=== PATIENT | female | born 1960 | race Caucasian/White ===

== ENCOUNTER 2017-02-25 13:18 | Outpatient (CLI) | payer MEDICARE ==
--- OUTSIDE RECORDS SUMMARY | 2017-02-25 13:21 | XMS | Clinical Summary ---
:1960 Author Organization [facility] Address [address] [place] [address] Phone Care Team Providers Name Role Phone , Primary Care Provider Unavailable Allergies Not on File Current Medications Not on file Active Problems Not on file Social History Tobacco Use Types Packs/Day Years Used Date Never Assessed Sex Assigned at Date Recorded Not on file Last Filed Vital Signs Not on file Plan of Treatment Not on file Results Not on filefrom Last 3 Months
--- NOTE | 2017-02-25 14:23 | BD ---
DEXA BONE MINERAL DENSITOMETRY EXAM, DENSITY EXAM: HISTORY: A 56-year-old postmenopausal female for screening. COMPARISON: None. FINDINGS: Lumbar Spine: BMD (g/cm2) L1 0.918 T-Score: -0.7 L2 0.970 T-Score: -0.5 L3 1.111 T-Score: 0.2 L4 0.858 T-Score: -1.8 L1-L4 0.967 T-Score: -0.7 Femoral Neck: 0.821 T-Score: -0.3 Total Femur: 0.986 T-Score: 0.4 Impression: Normal bone mineral density. POS: [facility]
== END 2017-02-25 13:19 | disposition home or self-care (01) ==
LOC: MAMMO 13:18
PROVIDERS: ATTEND Internal Medicine
DX: Z78.0 Asymptomatic menopausal state (principal)
CPT/HCPCS: 77080

== ENCOUNTER 2017-03-03 10:05 | Emergency (ER) | payer MEDICARE ==
--- OUTSIDE RECORDS SUMMARY | 2017-03-03 10:09 | XMS | Clinical Summary ---
:1960 Author Organization [facility] Address [address] [place] [address] Phone Care Team Providers Name Role Phone [...]
[2017-03-03] MEDS ORDERED: Fluorescein Opthalmic Strip ONE (11:43)
[2017-03-03] MEDS ORDERED: Proparacaine 0.5% Opth 15 ML BOT ONE (11:44)
== END 2017-03-03 13:01 | disposition home or self-care (01) ==
LOC: ERS 10:05
DX: S05.11XA Contusion of eyeball and orbital tissues, right eye, initial encounter (principal); E66.9 Obesity, unspecified; E03.9 Hypothyroidism, unspecified; F31.9 Bipolar disorder, unspecified; F90.9 Attention-deficit hyperactivity disorder, unspecified type; K21.9 Gastro-esophageal reflux disease without esophagitis; K58.9 Irritable bowel syndrome, unspecified; E78.5 Hyperlipidemia, unspecified; I10 Essential (primary) hypertension; F41.9 Anxiety disorder, unspecified; Z85.3 Personal history of malignant neoplasm of breast; Z79.899 Other long term (current) drug therapy; X58.XXXA Exposure to other specified factors, initial encounter
CPT/HCPCS: 99283

== ENCOUNTER 2017-10-31 15:13 | Emergency (ER) | payer MEDICARE ==
[2017-10-31] MEDS ORDERED: hydrOXYzine 25 MG TAB ONE (15:33)
== END 2017-10-31 17:50 | disposition home or self-care (01) ==
LOC: ERS 15:13
DX: T50.905A Adverse effect of unspecified drugs, medicaments and biological substances, initial encounter (principal); F31.9 Bipolar disorder, unspecified; F90.9 Attention-deficit hyperactivity disorder, unspecified type; K58.9 Irritable bowel syndrome, unspecified; I10 Essential (primary) hypertension; F41.9 Anxiety disorder, unspecified; E05.90 Thyrotoxicosis, unspecified without thyrotoxic crisis or storm; K21.9 Gastro-esophageal reflux disease without esophagitis; E66.9 Obesity, unspecified; E78.5 Hyperlipidemia, unspecified
CPT/HCPCS: 99283

== ENCOUNTER 2018-06-16 09:04 | Outpatient (CLI) | payer MEDICARE ==
--- NOTE | 2018-06-16 11:41 | CT ---
NONCONTRAST CT THORAX: Date: 06-16-18 History: Breast cancer in 2004. Chest pain. Patient also complains of neck and back pain. Comparison: None available. FINDINGS: There are findings suggestive of bilateral mastectomies with bilateral breast implants in place. Lack of intravenous contrast limits evaluation of the mediastinal structures, but no obvious enlarged lymph nodes are seen. There is mild linear scarring versus atelectasis in the upper lobes bilaterally as well as at the lef t lung base. No discrete pulmonary nodule, mass, or pleural effusion is seen bilaterally. Small bleb is seen in the left upper lobe adjacent to the major fissure. Post cholecystectomy changes are noted. Remainder of the upper abdomen demonstrates a grossly normal nonenhanced CT appearance. No lytic lesions are seen within the visualized osseous structures. There is a punctate scar density in the upper thoracic vertebral body probably related to a tiny bone island. IMPRESSION: 1. No acute findings are seen in the chest. 2. Additional mild incidental findings are seen. No pulmonary nodule or mass seen in the lungs bilate rally. 3. Minimal linear scarring versus atelectasis in the lungs bilaterally. POS: [facility]
== END 2018-06-16 09:05 | disposition home or self-care (01) ==
LOC: CT 09:04
PROVIDERS: ATTEND Psychiatry & Neurology Neurology
DX: R07.9 Chest pain, unspecified (principal); R20.2 Paresthesia of skin
CPT/HCPCS: 71250

== ENCOUNTER 2018-06-24 20:19 | Emergency (ER) | payer MEDICARE | END 2018-06-24 21:00 | disposition home or self-care (01) | LOC: SCSER 20:19 | DX: J06.9 Acute upper respiratory infection, unspecified (principal); F31.9 Bipolar disorder, unspecified; E05.90 Thyrotoxicosis, unspecified without thyrotoxic crisis or storm; F90.9 Attention-deficit hyperactivity disorder, unspecified type; K58.9 Irritable bowel syndrome, unspecified; I10 Essential (primary) hypertension; F41.9 Anxiety disorder, unspecified; E78.5 Hyperlipidemia, unspecified | CPT/HCPCS: 99281 ==

== ENCOUNTER 2018-07-08 11:47 | Outpatient (CLI) | payer OTHER, MEDICARE ==
--- NOTE | 2018-07-08 13:02 | RAD ---
TWO VIEWS CHEST: DATE: 07/08/2018. PROVIDED CLINICAL HISTORY: Cough. FINDINGS: Comparison is made with the study dated 10/11/2015. The cardiac and mediastinal silhouette is unchang ed in appearance. Lungs appear free of significant opacity. Subsegmental atelectatic changes are se en at the lung bases. No pleural fluid or pneumothorax apparent. IMPRESSION: No evidence for an acute cardiopulmonary process. POS: [facility]
== END 2018-07-08 11:48 | disposition home or self-care (01) ==
LOC: SCSRAD 11:47
PROVIDERS: ATTEND Physician Assistant
DX: R05 Cough (principal)
CPT/HCPCS: 71046

== ENCOUNTER 2018-09-01 11:10 | Outpatient (CLI) | payer MEDICARE ==
--- NOTE | 2018-09-01 11:57 | RAD ---
FExam: Lumbar spine 3 views HISTORY: Pain. Lumbar spondylosis Comparison 08/29/2014 FINDINGS: 5 lumbar type vertebral bodies. L2-L3: Neutral position, 3.2 mm retrolisthesis; extension, 2.5 mm retrolisthesis; flexion, 2.4 mm ret rolisthesis L3-L4: Neutral position 1.2 mm retrolisthesis; extension, 1.5 mm retrolisthesis; flexion 1.2 mm retro listhesis L4-L5: Neutral position: No spondylolisthesis; extension 1.4 mm retrolisthesis; flexion no spondyloli sthesis IMPRESSION: Spondylolisthesis as above. No associated spondylolysis.
== END 2018-09-01 11:11 | disposition home or self-care (01) ==
LOC: RAD 11:10
PROVIDERS: ATTEND Nurse Practitioner Family
DX: M47.816 Spondylosis without myelopathy or radiculopathy, lumbar region (principal); M43.16 Spondylolisthesis, lumbar region
CPT/HCPCS: 72100

== ENCOUNTER 2018-11-28 08:59 | Outpatient (CLI) | payer MEDICARE, OTHER ==
--- NOTE | 2018-11-28 09:56 | RAD ---
XR Foot Lt 3 View STANDARD History: Pain Comparison: Radiograph 2017 Findings: Bunionectomy changes of the great toe metatarsal head. No acute fracture or malalignment. T ype II os naviculare. Large plantar calcaneal spur. Impression: Chronic findings. No acute fracture or malalignment.
== END 2018-11-28 09:00 | disposition home or self-care (01) ==
LOC: RAD 08:59
PROVIDERS: ATTEND Nurse Practitioner Family
DX: M79.672 Pain in left foot (principal); M77.32 Calcaneal spur, left foot

== ENCOUNTER 2020-07-29 00:47 | Inpatient (IN) | payer MEDICARE ==
[2020-07-29] MEDS ORDERED: HYDROcodone/Acetaminophen 5/325 mg Tablet ONE (01:08)
[2020-07-29] MEDS ORDERED: PROPOFOL 20 ML ONE (01:42)
[2020-07-29] MEDS ORDERED: Fentanyl 100 MCG/2 ML VIAL ONE ×4 (02:37→15:20)
[2020-07-29] MEDS ORDERED: Dextrose 5% in Water 1,000 ML IV PRN (06:30)
[2020-07-29] MEDS ORDERED: Ondansetron PF 4 MG/2 ML Vial IVP PRN (06:30)
[2020-07-29] MEDS ORDERED: Dextrose 50% Abboject 50 ML SYRINGE SLOW IVP PRN (06:30)
[2020-07-29] MEDS ORDERED: hydrALAZINE 20 MG/ML VIAL SLOW IVP PRN (06:30)
[2020-07-29] MEDS ORDERED: traMADol HCl 50 MG TAB PO PRN ×2 (06:33)
[2020-07-29 07:16] LABS: #Basophils 0.1 thou/uL (0.0-0.2); #Eosinphils 0.3 thou/uL (0.0-0.7); #Lymphocytes 2.4 thou/uL (1.20-3.40); #Monocytes 0.5 thou/uL (0.11-0.59); #Neutrophils 4.6 thou/uL (1.40-6.50); %Basophils 0.6 % (0.0-1.0); %Eosinophils 4.1 % (0.0-10.0); %Lymphocytes 30.3 % (21.0-51.0); %Monocytes 6.5 % (0.0-10.0); %Neutrophils 58.4 % (42.0-75.0); Hemoglobin 11.5 g/dL (12.0-16.0); Mean Corpuscular HGB CONC 33.8 g/dL (32.0-36.0); Mean Corpuscular Hemoglobin 30.7 pg (27.0-31.0); Mean Corpuscular Volume 90.8 fL (78.0-98.0); Mean Platelet Volume 6.4 fL (7.4-10.4); Platelet Count 272 thou/uL (130-400); RBC Distribution Width 11.9 % (11.5-14.5); Red Blood Cell (RBC) Count 3.75 mill/uL (4.20-5.40); White Blood Cell (WBC) Count 7.9 thou/uL (4.8-10.8)
[2020-07-29 07:20] LABS: PTT 26.4 sec (22.9-36.1); Prothrombin Time 13.3 sec (12.0-14.7)
--- NOTE | 2020-07-29 07:34 | HP ---
TRAUMA SURGEON: Dr. Lainez CONSULTING PHYSICIAN: Pasquale Melton MD HISTORY OF PRESENT ILLNESS: The patient is a 59-year-old female, who presented to the emergency department complaining of left elbow pain. The patient reports that she had a mechanical fall on Saturday, 4 days before presentation. At that time, she suffered an elbow dislocation and went to the [facility] Emergency Department. There, it was reduced. They used ketamine to reduce the dislocation and the patient reports that as a result, she had a reaction causing an episode of acute heart failure. She was admitted to the hospital and was discharged on Saturday. She received Lasix and carvedilol there. Before she was discharged, she was kept for several days as she was requiring oxygen. At the time of my evaluation, there appears to be no signs of acute heart failure. The patient states that she is a patient of Dr. Quarles, but she was not seen by butter fat tester at her most recent hospital stay at [facility]. She denies any chest pain, shortness of breath, nausea, vomiting, or diarrhea at this time. EKG demonstrates a left bundle- branch block without any ST-segment changes or other ectopy. The patient has a history of left bundle-branch block. The patient reports yesterday evening she was trying to pull up her pants when she started to have a lot of swelling and pain in her left upper extremity. They called the nurse line that reported that the patient should unwrap the bandage. As a result, the patient then suffered an elbow dislocation that is when she came here to the emergency department. Dr. Pelayo gave the patient propofol in the emergency department and reduced the elbow dislocation and splinted it. Shortly thereafter, became dislocated again and reduced it another time before it became dislocated for the third time. Dr. Melton was consulted, who recommended admission to the Trauma Service and surgical intervention. REVIEW OF SYSTEMS: All additional 10-point review of systems negative except as indicated above. PAST MEDICAL HISTORY: Congestive heart failure, left bundle-branch block, asthma, hypothyroidism, depression, anxiety, bipolar disorder, fibromyalgia, and breast cancer. PAST SURGICAL HISTORY: Several breast surgeries, cholecystectomy, hysterectomy, several laparotomies for which the patient could not fully describe the reason. SOCIAL HISTORY: The patient denies tobacco, drug, or alcohol use. 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 MEDICATIONS: 1. Lasix. 2. Carvedilol. 3. Potassium chloride. 4. Prozac. 5. Omeprazole. 6. Levothyroxine. 7. Trazodone. 8. Lamictal. 9. Diclofenac. 10. Aspirin. ALLERGIES: GABAPENTIN, ZITHROMAX, IODINE, CIPRO, LYRICA, KETAMINE, SUMATRIPTAN, SHELLFISH, IBUPROFEN, WELLBUTRIN, AND AMOXICILLIN. PHYSICAL EXAMINATION: VITAL SIGNS: Temperature 97.9, pulse 66, respirations 16, oxygen saturation 95% on 1 L nasal cannula, and blood pressure 115/57. PRIMARY SURVEY: Airway intact. Adequate breath sounds bilaterally. 2+ pulses in bilateral radials, femorals, and DPs. GCS 15. Gross motor and sensation intact. No lacerations, bruising, or external bleeding. Left upper extremity with splint that is in place. SECONDARY SURVEY: HEAD: No signs of trauma. FACE: No signs of trauma. C-SPINE: No step-offs or deformities. Nontender. C-collar not in place. CHEST: Nontender. No crepitus. No abrasions or ecchymosis noted. ABDOMEN: Soft, nontender, and nondistended. PELVIS: Stable to palpation. Nontender. RECTAL: Deferred. GENITOURINARY: Deferred. EXTREMITIES: The patient with splint to left upper extremity. She has positive bilateral radial and DP pulses. Left hand is well perfused. Motor and sensation intact. BACK/SPINE: No signs of trauma. 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 Gross normal sensation x4 extremities. LABORATORY FINDINGS: Pending. We will follow those results up when available. DIAGNOSTIC FINDINGS: Reports of multiple left elbow x-rays as well as chest x- ray are pending. Elbow x-ray demonstrates subluxation. Chest x-ray demonstrates no significant volume overload, pneumothorax, or effusion. It does show cardiomegaly. ASSESSMENT: 1. Status post left elbow re-dislocation. 2. History of recent congestive heart failure with hospitalization. 3. History of hypertension, left bundle-branch block, asthma, hypothyroidism, depression, anxiety, bipolar disorder, fibromyalgia, and breast cancer. PLAN: The patient is admitted to the Trauma Service. She can go to the regular surgical nursing floor. She is n.p.o. Dr. Melton to evaluate the patient today and take her to the OR when she is medically ready. The patient needs to be seen by Dr. Tello and possibly Cardiology before going to the OR as she recently was hospitalized for congestive heart failure exacerbation. The Day Trauma Team will follow up the patient's formal diagnostic reads as well as laboratory studies. This patient was discussed with Dr. Lainez before this dictation. Job ID: [id number] MTDD
[2020-07-29 07:40] LABS: ALT (SGPT) 17 U/L (8-55); AST (SGOT) 16 U/L (5-34); Albumin 3.5 g/dL (3.5-5.0); Alkaline Phosphatase 83 U/L (40-110); Anion Gap 11 mmol/L (10-20); BUN (Urea Nitrogen) 22 mg/dL (9.8-20.1); Bilirubin, Total 0.3 mg/dL (0.2-1.2); Calc. Creatinine Clearance 0 mL/min (70-130); Calcium 8.3 mg/dL (7.8-10.44); Carbon Dioxide 28 mmol/L (22-29); Chloride 105 mmol/L (98-107); Globulin 2.6 g/dL (2.4-3.5); Glucose 92 mg/dL (70-105); Protein, Total 6.1 g/dL (6.0-8.3); Sodium 140 mmol/L (136-145)
--- NOTE | 2020-07-29 07:45 | RAD ---
Portable frontal chest radiograph: 07/29/2020 COMPARISON: 09/21/2016 HISTORY: Preoperative patient FINDINGS: The cardiac silhouette is enlarged. There is mild pulmonary vascular prominence with no pne umothorax, pleural fluid, lobar consolidation, or alveolar edema. IMPRESSION: Enlarged cardiac silhouette with no focal consolidation or alveolar edema.
--- NOTE | 2020-07-29 07:59 | RAD ---
Radiograph left elbow 2 views: 07/29/2020 1:44 AM HISTORY: 59-year-old female with left elbow pain COMPARISON: No recent elbow radiograph available FINDINGS: The capitellum radial joint space is very widened. There is medial subluxation/dislocation of both th e head of the radius and proximal ulna relative to the distal humerus. There is a posterior splint on one of the 2 images. No displaced fracture is identified. IMPRESSION: Left elbow dislocation/subluxation
--- NOTE | 2020-07-29 08:01 | RAD ---
Radiograph left elbow 2 views: 07/29/2020 2:25 AM HISTORY: 59-year-old female status post elbow dislocation. Worsening pain. FINDINGS: There continues to be medial displacement of the radius and ulna relative to the distal humerus on th e AP view, which is limited because the elbow is flexed on the AP view. Posterior splint remains. IMPRESSION: On postreduction images, there continues to be medial subluxation or dislocation of the radius and ul na relative to the humerus
[2020-07-29] MEDS: Acetaminophen 500 MG TAB PO SCH ×3 (08:32→20:08)
[2020-07-29] MEDS: Famotidine/PF 20 mg/2ml Vial SLOW IVP SCH ×2 (08:34→20:07)
[2020-07-29] MEDS: Polyethylene Glycol 3350 17 GM Packet PO SCH (08:34)
[2020-07-29] MEDS: Senokot S 8.6-50 MG TAB PO SCH ×2 (08:35→20:07)
[2020-07-29 09:14] LABS: SARS-CoV-2 NAA Rapid Test Not Detected (NotDetected)
[2020-07-29] MEDS ORDERED: Clindamycin/D5W 900 MG in Premix Bag 1 BAG IVPB SCH (09:15)
[2020-07-29] MEDS ORDERED: PROPOFOL 200 MG/20 ML VIAL ONE (09:44)
[2020-07-29] MEDS ORDERED: Dexamethasone 20 MG/5 ML VIAL ONE (09:44)
[2020-07-29] MEDS ORDERED: Ondansetron PF 4 MG/2 ML Vial ONE (09:44)
[2020-07-29] MEDS ORDERED: Rocuronium Bromide 10 MG/ML (10ML VIAL) ONE (09:44)
[2020-07-29] MEDS ORDERED: Lidocaine 1% PF 5 ML VIAL ONE (09:44)
--- NOTE | 2020-07-29 10:03 | CON ---
DATE OF CONSULTATION: CHIEF COMPLAINT: Left elbow pain. HISTORY OF PRESENT ILLNESS: Ms. Pang is a 59-year-old female, who has fallen in her backyard approximately 6 days ago. She dislocated her left elbow. She had pain and swelling. She went to [facility], where she was found to have a dislocated elbow. She had a ketamine sedation and a reduction of the elbow. She stayed there for 3 days because of a CHF exacerbation she reports. She has presented to the emergency department at [facility] last night with a redislocated elbow. She felt a pop and increased pain of her elbow and had swelling. Repeat x-ray showed recurrent dislocation. She had an attempt at reduction in the emergency department, which Dr. Pelayo thought was successful, however, she redislocated as she was being splinted. She has now been admitted to the hospital for treatment of her elbow dislocation. REVIEW OF SYSTEMS: Positive for elbow pain. Otherwise, negative 10-point review of systems. PAST MEDICAL HISTORY: CHF, left bundle-branch block, asthma, hypothyroidism, depression, anxiety, bipolar, fibromyalgia, and history of breast cancer. PAST SURGICAL HISTORY: Cholecystectomy, hysterectomy, and previous laparotomy. SOCIAL HISTORY: The patient denies tobacco, alcohol, or drug use. MEDICATIONS: 1. Lasix. 2. Carvedilol. 3. Potassium. 4. Prozac. 5. Omeprazole. 6. Levothyroxine. 7. Trazodone. 8. Lamictal. 9. Diclofenac. 10. Aspirin. ALLERGIES: MANY INCLUDING GABAPENTIN, ZITHROMAX, IODINE, CIPRO, LYRICA, KETAMINE, SUMATRIPTAN, IBUPROFEN, SHELLFISH, WELLBUTRIN, AND AMOXICILLIN. PHYSICAL EXAMINATION: VITAL SIGNS: Temperature is 98.6, pulse is 83, respiratory rate of 18, oxygen saturation 97%, and blood pressure is 140/89. GENERAL: She is lying supine, alert, no apparent distress. EXTREMITIES: Her left arm is in a splint. She is neurovascularly intact in the digits. She has 2-second capillary refill. She is able to flex and extend the digits. Elbow splint was not removed. IMAGES: X-rays of the left elbow demonstrate a dislocated elbow with medial subluxation and posterior dislocation. There is a small avulsion type fracture from the lateral distal humerus. IMPRESSION: Recurrent dislocation of left elbow with instability in a 59-year-old female. PLAN: At this point, the patient has been admitted to the hospital. She will need surgical intervention for her elbow. She has an elbow dislocation currently that is unstable. We will plan for closed versus open reduction of the elbow in the operating room. If she has a recurrently unstable elbow under fluoroscopy, we will need to open the lateral side and repair her lateral collateral ligaments. She is aware of this and wants to proceed. She is aware that if this fails, she would need to come back to the operating room at a later date for external fixation of the elbow. She will have pain control. She will be n.p.o. She will have medical optimization and clearance for surgery. Job ID: [id number]
[2020-07-29] MEDS: Morphine 4 MG/ML VIAL SLOW IVP PRN ×4 (10:05→22:16)
[2020-07-29] MEDS ORDERED: Clindamycin/D5W 900 mg/50 ml Premix Bag ONE (11:31)
[2020-07-29] MEDS ORDERED: Norepinephrine 4 MG/4 ML VIAL ONE (12:20)
[2020-07-29] MEDS ORDERED: XYLOCAINE 2%-EPI 1:100,000 20 ML VIAL ONE (13:11)
[2020-07-29 13:14] VITALS: BMI 22.8
--- NOTE | 2020-07-29 13:36 | CON ---
DATE OF CONSULTATION: 07/29/2020 PRIMARY ENGLISH HORN PLAYER: Dr. Mc Quarles at [facility]. REASON FOR CONSULTATION: Preoperative evaluation. HISTORY OF PRESENT ILLNESS: Ms. Pang is a very pleasant 59-year-old white female, who comes to the hospital for left arm pain. She had a fall on Saturday, which is 5 days ago and actually went to the [facility] ER with a dislocated elbow. She had it reduced in the ER. Ketamine was used to sedate her and she had a reaction apparently that made her have heart failure, accumulated fluid, and had to be given IV Lasix and was started on a beta pk there. She apparently was discharged to home and required oxygen supplementation at home as well. She currently denies any chest pain, tightness, pressure. No shortness of breath. She does not remember being told that she has a weak heart. She only remembers being told she has a left bundle-branch block and she has had heart failure. She continued to have pain on the left upper extremity and she was advised to come into the hospital and she had a repeat dislocation of the elbow, so this was again reduced in the ER here at [facility] and was splinted; however, shortly thereafter, it became dislocated again, so this is going to have to require surgical reduction. On my evaluation, she denies any chest pain, tightness, or pressure. Echocardiogram is being done at bedside at the time of my evaluation and her EF is around 30%. PAST MEDICAL HISTORY: 1. History of congestive heart failure. 2. Left bundle branch block. 3. Bronchial asthma. 4. Hypothyroidism. 5. Anxiety and depression. 6. Bipolar disorder. 7. Fibromyalgia. 8. Breast cancer. SURGICAL HISTORY: 1. Cholecystectomy. 2. Hysterectomy. 3. Laparotomies. 4. Breast augmentation more for repair from breast cancer surgeries. SOCIAL HISTORY: No alcohol, tobacco, or drugs. 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 OUTPATIENT MEDICATIONS: Include: 1. Trazodone. 2. Lamictal. 3. Atarax. 4. Maxalt. 5. Prilosec. 6. Benicar. 7. Multivitamins. 8. Singular. 9. Synthroid. 10. Prozac. 11. Diclofenac. 12. Adderall. 13. Colestipol. 14. Abilify. ALLERGIES: SEVERAL. 1. ADHESIVE TAPE. 2. AMOXICILLIN. 3. AZITHROMYCIN. 4. BUPROPION. 5. CIPRO. 6. IBUPROFEN. 7. IODINATED CONTRAST. 8. NAPROXEN. 9. SHELLFISH. 10. AMITRIPTYLINE. REVIEW OF SYSTEMS: A 12-point review of systems was done and was found to be negative other than stated in the history of present illness. PHYSICAL EXAMINATION: VITAL SIGNS: Temperature 98.6, pulse 83, respiratory rate 18 sat 97% on 2 L. Currently, she is 98 on room air blood pressure 140/89. GENERAL: Awake, alert, and oriented x3 in no distress. HEENT: Normocephalic and atraumatic. NECK: Supple. LUNGS: Clear. CARDIOVASCULAR: S1 and S2. No S3 or S4. There is a grade 2/6 systolic murmur. There is a fixed split S2. ABDOMEN: Soft. EXTREMITIES: Trace edema. SKIN: Warm and dry. LABORATORY WORK: Reviewed. White count of 7, hemoglobin of 11, hematocrit 34, platelet count 272. Coags were normal. Chemistries were unremarkable with normal BUN and creatinine GFR was 72: COVID PCR was not detected. ASSESSMENT: 1. Dislocated . 2. Preoperative cardiovascular evaluation. 3. New onset systolic dysfunction with EF at 30%. 4. Bundle-branch block. PLAN: 1. Certainly, her biggest issue right now is her dislocated elbow. She needs this surgically reduced. At this time, she is not having any symptoms suggestive of a decompensated heart failure or CAD. She has a reduced EF, which is a new finding from our perspective. We need to get records from [facility]. I think there is no cardiac contraindications to proceed with surgery. She would be intermediate to high risk given her reduced EF; however, her elbow needs to be addressed now. I think she should be able to proceed with the understood risks. 2. Would recommend judicious use of fluids. 3. Recommended Levophed versus phenylephrine for any blood pressure issues during surgery to help cardiac output. Thank you for letting us to participate in the care of your patient. We will follow. Job ID: [id number]
[2020-07-29] MEDS ORDERED: HYDROmorphone 0.5 MG/0.5 ML SYRINGE ONE (14:18)
[2020-07-29] MEDS ORDERED: Promethazine HCl 25 MG/ML VIAL IM PRN (15:03)
[2020-07-29] MEDS ORDERED: PACU-Morphine 4MG/ML VIAL SLOW IVP PRN (15:03)
[2020-07-29] MEDS ORDERED: Ondansetron HCl/PF 4 MG/2 ML Vial IVP PRN (15:03)
[2020-07-29] MEDS ORDERED: HYDROmorphone 2 MG/ML VIAL SLOW IVP PRN (15:03)
[2020-07-29] MEDS ORDERED: Promethazine HCl 25 MG/ML VIAL SLOW IVP PRN (15:03)
[2020-07-29] MEDS: Clindamycin/D5W 900 MG in Premix Bag 1 BAG IVPB SCH ×2 (16:22→22:07)
--- NOTE | 2020-07-29 17:15 | RAD ---
SINGLE LATERAL VIEW OF THE LEFT ELBOW: 07/29/20 INDICATION: Closed reduction of left elbow. COMPARISON: Prior radiograph of the left elbow dated 07/29/20 at 2:35 a.m. FINDINGS: Submitted lateral projection demonstrates appropriate inferior positioning of the ulnar humeral and radiocapitellar alignment. The total fluoroscopic time was 6.9 seconds. Tota l exposure was 0.26 mGy. IMPRESSION: Single lateral projection demonstrating reduction of the left elbow joint. POS: [facility]
--- NOTE | 2020-07-29 20:18 | OP ---
DATE OF PROCEDURE: 07/29/2020 PROCEDURE PERFORMED: Open reduction of left elbow dislocation with open repair of lateral collateral ligament complex. PREOPERATIVE DIAGNOSIS: Chronic and recurrent dislocation of left elbow with insufficient ligaments. POSTOPERATIVE DIAGNOSIS: Chronic and recurrent dislocation of left elbow with insufficient ligaments. COMPLICATIONS: None. ESTIMATED BLOOD LOSS: Minimal. APPLICATION CHEMIST: Lidia Sommers PA-C. IMPLANTS: Two Arthrex SwiveLock type anchors were utilized with FiberWire suture and FiberTape suture. INDICATIONS: Ms. Pang is a 59-year-old female who has fallen and dislocated her elbow. She has had 3 recurrent dislocations since that time. She has been indicated now for ligament repair to restore stability of the elbow and promote healing. Risks have been reviewed in detail. She has elected to proceed with the operation. DESCRIPTION OF PROCEDURE: Ms. Pang was identified in the preoperative holding area. Her correct extremity was marked. She was carried to the operating room. She was positioned supine. General anesthesia was induced. A multidisciplinary time-out was performed. The left upper extremity was prepped and draped in sterile fashion. We began the procedure by performing a Walter approach to the elbow, dissected down through the subcutaneous tissues. As soon as we got through the subcutaneous tissues, the injury was identified. There was complete disruption of the lateral muscular attachment as well as the underlying ulnar and lateral collateral ligament complex. We went directly into the joint. We debrided the hematoma and scar tissue from the joint at this point and thoroughly irrigated. We then identified the stump of the ligamentous tissue. We placed a Krackow suture in this using a FiberWire suture. We then identified an appropriate insertion point on the ulna for our anchor. We cleared the soft tissues and inserted a 3.5-mm anchor into this site under direct visualization. This was attached to a FiberTape suture. Next, we passed the FiberWire and FiberTape into a secondary anchor. This was placed to the isometric point of the elbow. We were able to insert the second anchor after tensioning the FiberWire sutures into the center of the capitellum. This restored congruity of the elbow and restored stability. At this point, we checked range of motion as well as x-rays to confirm we had a reduced elbow. At this point, we thoroughly irrigated with copious lavage. We then oversewed the repair and closed the fascia. Finally, we completed layered closure. A sterile dressing and a splint was placed. The patient was taken to the recovery room in good condition. Job ID: [id number]
[2020-07-29] MEDS ORDERED: Carvedilol 3.125 MG TAB PO SCH (21:45)
[2020-07-29] MEDS ORDERED: traZODone HCl 50 MG TAB PO SCH (22:00)
[2020-07-29] MEDS: lamoTRIgine 100 MG TAB PO SCH (22:05)
[2020-07-29] MEDS: Primidone 50 MG TAB PO SCH (22:06)
--- NOTE | 2020-07-30 02:12 | PRG ---
DATE OF SERVICE: 07/29/2020 SUBJECTIVE: Patient was seen this evening during rounds. She is postoperative day 0, status post ORIF of the lateral collateral ligament complex after left elbow dislocation. At the time of my evaluation, she was awake and alert. She reported her pain is well controlled and she is feeling fine after surgery. Nursing at the bedside reports no acute events. OBJECTIVE: VITAL SIGNS: Temperature 98.1, pulse 79, respirations 14, oxygen saturation 95% on 2 L nasal cannula, blood pressure 134/78. GENERAL: Well-appearing, middle-aged female, sitting up in bed, awake and alert with no signs of acute distress. PULMONARY: Equal chest rise and fall. Clear breath sounds bilaterally. No signs of acute respiratory distress. CARDIAC: Regular rate and rhythm. GASTROINTESTINAL: Abdomen is soft, nontender, nondistended. EXTREMITIES: 2+ pulses in all extremities. Gross motor and sensation intact. There is some mild swelling to the left hand. Hand is warm with good cap refill. NEUROLOGIC: GCS is 15. ASSESSMENT: 1. Status post fall on Saturday with recurrent left elbow dislocation, status post repair. 2. History of congestive heart failure, left bundle branch block, asthma, hypothyroidism, anxiety, depression, bipolar disorder, breast cancer, and fibromyalgia. PLAN: Continue current heart-healthy diet. Start physical and occupational therapy tomorrow. We will restart patient's home medications. We will hold off on starting her home Lasix tomorrow until we have an opportunity to re-evaluate her vital signs and laboratory studies. Patient to work with PT/OT tomorrow. She could likely go home. There are no cardiopulmonary concerns at this time. Job ID: [id number]
[2020-07-30] MEDS: Acetaminophen 500 MG TAB PO SCH ×4 (02:49→20:16)
[2020-07-30] MEDS: Levothyroxine Sodium 112 MCG TAB PO SCH (05:58)
[2020-07-30 06:03] LABS: #Lymphocytes 0.7 thou/uL (1.20-3.40); #Monocytes 0.3 thou/uL (0.11-0.59); #Neutrophils 9.2 thou/uL (1.40-6.50); %Basophils 0.3 % (0.0-1.0); %Eosinophils 0.2 % (0.0-10.0); %Lymphocytes 6.4 % (21.0-51.0); %Monocytes 3.3 % (0.0-10.0); %Neutrophils 89.9 % (42.0-75.0); Hemoglobin 11.2 g/dL (12.0-16.0); Mean Corpuscular HGB CONC 32.7 g/dL (32.0-36.0); Mean Corpuscular Hemoglobin 29.4 pg (27.0-31.0); Mean Platelet Volume 6.6 fL (7.4-10.4); Platelet Count 279 thou/uL (130-400); RBC Distribution Width 11.8 % (11.5-14.5); Red Blood Cell (RBC) Count 3.82 mill/uL (4.20-5.40); White Blood Cell (WBC) Count 10.3 thou/uL (4.8-10.8)
[2020-07-30] MEDS: Morphine 4 MG/ML VIAL SLOW IVP PRN ×2 (06:03→09:38)
[2020-07-30 06:52] LABS: Anion Gap 13 mmol/L (10-20); BUN (Urea Nitrogen) 16 mg/dL (9.8-20.1); Calc. Creatinine Clearance 79 mL/min (70-130); Calcium 8.2 mg/dL (7.8-10.44); Carbon Dioxide 24 mmol/L (22-29); Chloride 102 mmol/L (98-107); Glucose 164 mg/dL (70-105); Magnesium 2.1 mg/dL (1.6-2.6); Potassium 4.2 mmol/L (3.5-5.1); Sodium 135 mmol/L (136-145)
[2020-07-30] MEDS: Cyclobenzaprine 10 MG TAB PO PRN ×2 (08:08→19:08)
[2020-07-30] MEDS: Senokot S 8.6-50 MG TAB PO SCH ×2 (08:10→20:17)
[2020-07-30] MEDS: FLUoxetine HCl 20 MG CAP PO SCH (08:12)
[2020-07-30] MEDS: Carvedilol 3.125 MG TAB PO SCH ×2 (08:13→16:20)
[2020-07-30] MEDS: Lisinopril 2.5 MG TAB PO SCH (08:14)
[2020-07-30] MEDS: Polyethylene Glycol 3350 17 GM Packet PO SCH (08:14)
[2020-07-30] MEDS ORDERED: traZODone HCl 50 MG TAB PO SCH (09:00)
[2020-07-30] MEDS ORDERED: HYDROcodone/Acetaminophen 5/325 mg Tablet PO PRN ×2 (11:29→21:49)
--- NOTE | 2020-07-30 11:35 | PDOC.CPN ---
- Subjective Date: 07/30/20 Time: 11:32 Interval history: She had romain surgery without issues. She denies SOB or chest pain. - Review of Systems General: denies: fever/chills, weight/appetite/sleep changes, night sweats, fatigue Respiratory: denies: cough, congestion, shortness of breath, exercise intolerance Cardiovascular: denies: chest pain, palpitation, edema, paroxysmal nocturnal dyspnea, orthopnea Gastrointestinal: denies: nausea, vomiting, diarrhea, constipation, abd pain, GI bleeding Musculoskeletal: denies: pain, tenderness, stiffness, swelling, arthritis/arthralgias Neurological: denies: numbness, syncope, seizure, weakness - Objective Allergies/Adverse Reactions: Allergies Allergy/AdvReac Type Severity Reaction Status Date / Time adhesive tape Allergy Rash Verified 08/23/19 04:07 amoxicillin Allergy Stomach Verified 08/23/19 04:07 Ache azithromycin [From Zithromax] Allergy Nausea Verified 08/23/19 04:07 bupropion HCl Allergy Swollen Verified 08/23/19 04:07 [From Wellbutrin] Lips ciprofloxacin [From Cipro] Allergy Rash Verified 08/23/19 04:07 ciprofloxacin HCl Allergy Rash Verified 08/23/19 04:07 [From Cipro] ibuprofen Allergy Rash Verified 08/23/19 04:07 Iodinated Contrast Media Allergy Rash Verified 08/23/19 04:07 [Iodinated Contrast Media - IV Dye] naproxen sodium [From Aleve] Allergy Rash Verified 08/23/19 04:07 shellfish derived Allergy Swollen Verified 08/23/19 04:07 Lips sumatriptan [From Imitrex] Allergy Verified 08/23/19 04:07 sumatriptan succinate Allergy Verified 08/23/19 04:07 [From Imitrex] Visit Medications: Current Medications Acetaminophen (Acetaminophen 500 Mg Tab) 1,000 mg PO Q6H [facility] Last Admin: 07/30/20 08:12 Dose: 1,000 mg Documented by: Hydrocodone Bitart/Acetaminophen (Hydrocodone/Acetaminophen 5/325 Mg Tablet) 1 tab PO Q6HR PRN PRN Reason: Pain Carvedilol (Carvedilol 3.125 Mg Tab) 3.125 mg PO BID-[facility] Last Admin: 07/30/20 08:13 Dose: 3.125 mg Documented by: Colestipol HCl (Colestipol Hcl 1 Gm Tab) 1 gm PO DAILYPRN PRN PRN Reason: SPASMS Cyclobenzaprine HCl (Cyclobenzaprine 10 Mg Tab) 10 mg PO TID PRN PRN Reason: Muscle Spasm Last Admin: 07/30/20 08:08 Dose: 10 mg Documented by: Dextrose/Water (Dextrose 50% Abboject 50 Ml Syringe) 25 gm SLOW IVP PRN PRN PRN Reason: Hypoglycemia Fluoxetine HCl (Fluoxetine Hcl 20 Mg Cap) 80 mg PO DAILY [facility] Last Admin: 07/30/20 08:12 Dose: 80 mg Documented by: Furosemide (Furosemide 20 Mg Tab) mg PO DAILY [facility] Glucagon (Glucagon 1 Mg/Ml Vial) 1 mg IM PRN PRN PRN Reason: Hypoglycemia Hydralazine HCl (Hydralazine 20 Mg/Ml Vial) 10 mg SLOW IVP Q4H PRN PRN Reason: SBP > 170 or DBP > 100 Dextrose/Water (D5w) 1,000 mls @ 0 mls/hr IV .Q0M PRN PRN Reason: Hypoglycemia Lamotrigine (Lamotrigine 100 Mg Tab) 200 mg PO HS [facility] Last Admin: 07/29/20 22:05 Dose: 200 mg Documented by: Levothyroxine Sodium (Levothyroxine Sodium 112 Mcg Tab) 112 mcg PO 0600 [facility] Last Admin: 07/30/20 05:58 Dose: 112 mcg Documented by: Lisinopril (Lisinopril 2.5 Mg Tab) 2.5 mg PO DAILY [facility] Last Admin: 07/30/20 08:14 Dose: Not Given Documented by: Morphine Sulfate (Morphine 4 Mg/Ml Vial) 4 mg SLOW IVP Q2H PRN PRN Reason: Breakthrough Pain Last Admin: 07/30/20 09:38 Dose: 4 mg Documented by: Non-Formulary Medication (Potassium Chloride [Potassium Chloride]) 1 tab PO BID [facility] Ondansetron HCl (Ondansetron Pf 4 Mg/2 Ml Vial) 4 mg IVP Q6H PRN PRN Reason: Nausea Pantoprazole Sodium (Pantoprazole 40 Mg Tab) 40 mg PO DAILY [facility] Last Admin: 07/30/20 08:13 Dose: 40 mg Documented by: Polyethylene Glycol (Polyethylene Glycol 3350 17 Gm Packet) 17 gm PO DAILY [facility] Last Admin: 07/30/20 08:14 Dose: Not Given Documented by: Primidone (Primidone 50 Mg Tab) 25 mg PO HS [facility] Last Admin: 07/29/20 22:06 Dose: Not Given Documented by: Senna/Docusate Sodium (Senokot S 8.6-50 Mg Tab) 2 tab PO BID [facility] Last Admin: 07/30/20 08:10 Dose: 2 tab Documented by: Sodium Chloride (Flush - Normal Saline 10 Ml Syringe) 10 ml IVF PRN PRN PRN Reason: Saline Flush Tramadol HCl (Tramadol Hcl 50 Mg Tab) 100 mg PO Q6H PRN PRN Reason: Moderate to Severe Pain (6-10) Tramadol HCl (Tramadol Hcl 50 Mg Tab) 50 mg PO Q6H PRN PRN Reason: Moderate Pain (4-6) Trazodone HCl (Trazodone Hcl 50 Mg Tab) 200 mg PO [facility] Vital Signs & Weight: Vital Signs Temp Pulse Resp BP Pulse Ox 07/30/20 08:14 60 07/30/20 08:00 94 L 07/30/20 07:21 98.1 F 60 18 114/73 94 L 07/30/20 03:02 97.8 F 73 16 137/84 96 07/29/20 23:37 98.2 F 74 16 143/82 H 96 Weight 149 lb 14.629 oz - Physical Exam General: alert & oriented x3 HEENT: mucus membranes moist Neck: supple neck Cardiac: regular rate and rhythm Lungs: normal breath sounds Neuro: grossly intact, no lateralizing findings Abdomen: active bowel sounds Extremities: 1+ LE edema Skin: clear Musculoskeletal: other (Left arm splint) - Labs Result Diagrams: 07/30/20 05:37 07/30/20 05:37 - Assessment/Plan Assessment/Plan: 1. New onset dilated cardiomyopathy 2. Normal LHC by report at [facility] last year 3. Left elbow dislocation and ligament tears s/p repair PLAN: - Continue low dose BB - She is very sensitive to medications and wants to hold off on starting Entresto or ACEI until her elbow is better. - We discussed lifevest and she agrees to proceed. - May d/c from cardiac perspective once Lifevest placed if she is a candidate for it. - Follow up in office in 4 weeks for re evaltation.
--- NOTE | 2020-07-30 11:48 | PRG ---
DATE OF SERVICE: 07/30/2020 SUBJECTIVE: Ms. Pang is a 59-year-old female patient, postop day #1 ORIF of lateral collateral ligament complex after elbow dislocation. The patient was seen in bed this morning with oxygen on 1 L. The patient reports her pain was not well controlled at the time of visit. The patient sees Pain Management as outpatient and takes hydrocodone q.6 and she will be restarted. The patient will be reassessed this evening OBJECTIVE: VITAL SIGNS: Temperature 98.1, pulse 60, respiratory rate 18, O2 saturation 94 on room air, and blood pressure 114/73. GENERAL: Well appearing, sitting up in bed, complains of left elbow pain. PULMONARY: Equal chest rise and fall. Clear breath sounds. Speaking full sentences. No signs of distress. CARDIAC: Regular rate and rhythm. ABDOMEN: Protuberant, soft, nontender. NEUROLOGIC: Sensation intact bilaterally in upper and lower extremities. GCS 15. LAB WBC10.3, HGB11.2, HCT 34.4 plat 279. NA 135, k 4.2 cl 102, bicar 24, bun 16, cr 82 ASSESSMENT: 1. Status post fall on Saturday with recurring elbow dislocation, status post operative repair. 2. History of congestive heart failure, left bundle-branch block, asthma, hypothyroid, anxiety, depression, bipolar disorder, breast cancer, and fibromyalgia. PLAN: Continue heart healthy diet, monitor for CHF exacerbation. We will restart the patient's home medication. Pain not well controlled on current pain regimen. -The patient not able to take gabapentin or Lyrica due to attempted suicide in the past. The patient will continue work with PT/OT, the patient can likely go home tomorrow as long as pain is well controlled. Case will be discussed with Dr. Tello this afternoon. Job ID: [id number] MTDD
[2020-07-30] MEDS ORDERED: Ketorolac Tromethamine 30 MG/ML VIAL IVP SCH (12:15)
[2020-07-30] MEDS: HYDROcodone/Acetaminophen 5/325 mg Tablet PO PRN ×2 (14:12→20:16)
[2020-07-30] MEDS: Potassium Chloride 10 MEQ TAB PO SCH (20:17)
[2020-07-30] MEDS: lamoTRIgine 100 MG TAB PO SCH (20:17)
[2020-07-30] MEDS: traZODone HCl 50 MG TAB PO SCH (20:17)
[2020-07-30] MEDS: Primidone 50 MG TAB PO SCH (20:18)
[2020-07-30] MEDS: Acetaminophen 325 MG TAB PO SCH ×2 (23:38→23:39)
[2020-07-31] MEDS: HYDROcodone/Acetaminophen 10/325 mg Tablet PO PRN ×3 (04:11→17:17)
[2020-07-31] MEDS: Levothyroxine Sodium 112 MCG TAB PO SCH (06:16)
[2020-07-31] MEDS: Acetaminophen 325 MG TAB PO SCH ×3 (06:16→17:16)
[2020-07-31] MEDS: Furosemide 20 MG TAB PO SCH (08:15)
[2020-07-31] MEDS: Carvedilol 3.125 MG TAB PO SCH ×2 (08:15→16:18)
[2020-07-31] MEDS: FLUoxetine HCl 20 MG CAP PO SCH (08:15)
[2020-07-31] MEDS: Potassium Chloride 10 MEQ TAB PO SCH ×2 (08:16→20:26)
[2020-07-31] MEDS: Lisinopril 2.5 MG TAB PO SCH (08:16)
[2020-07-31] MEDS: Polyethylene Glycol 3350 17 GM Packet PO SCH (08:16)
[2020-07-31] MEDS: Senokot S 8.6-50 MG TAB PO SCH ×2 (08:16→20:26)
[2020-07-31] MEDS: Cyclobenzaprine 10 MG TAB PO PRN ×2 (08:19→16:18)
--- NOTE | 2020-07-31 13:11 | PDOC.CPN ---
- Subjective Date: 07/31/20 Time: 13:09 Interval history: No new issues. Pain on her arm. - Review of Systems General: denies: fever/chills, weight/appetite/sleep changes, night sweats, fatigue Respiratory: denies: cough, congestion, shortness of breath, exercise intolerance Cardiovascular: denies: chest pain, palpitation, edema, paroxysmal nocturnal dyspnea, orthopnea Gastrointestinal: denies: nausea, vomiting, diarrhea, constipation, abd pain, GI bleeding Musculoskeletal: reports: pain. denies: tenderness, stiffness, swelling, arthritis/arthralgias Neurological: denies: numbness, syncope, seizure, weakness - Objective Allergies/Adverse Reactions: Allergies Allergy/AdvReac Type Severity Reaction Status Date / Time adhesive tape Allergy Rash Verified 08/23/19 04:07 amoxicillin Allergy Stomach Verified 08/23/19 04:07 Ache azithromycin [From Zithromax] Allergy Nausea Verified 08/23/19 04:07 bupropion HCl Allergy Swollen Verified 08/23/19 04:07 [From Wellbutrin] Lips ciprofloxacin [From Cipro] Allergy Rash Verified 08/23/19 04:07 ciprofloxacin HCl Allergy Rash Verified 08/23/19 04:07 [From Cipro] ibuprofen Allergy Rash Verified 08/23/19 04:07 Iodinated Contrast Media Allergy Rash Verified 08/23/19 04:07 [Iodinated Contrast Media - IV Dye] naproxen sodium [From Aleve] Allergy Rash Verified 08/23/19 04:07 shellfish derived Allergy Swollen Verified 08/23/19 04:07 Lips sumatriptan [From Imitrex] Allergy Verified 08/23/19 04:07 sumatriptan succinate Allergy Verified 08/23/19 04:07 [From Imitrex] Visit Medications: Current Medications Acetaminophen (Acetaminophen 325 Mg Tab) 650 mg PO Q6HR [facility] Last Admin: 07/31/20 11:09 Dose: 650 mg Documented by: Hydrocodone Bitart/Acetaminophen (Hydrocodone/Acetaminophen 5/325 Mg Tablet) 1 tab PO Q6H PRN PRN Reason: Moderate Pain (4-6) Last Admin: 07/30/20 22:31 Dose: 1 tab Documented by: Hydrocodone Bitart/Acetaminophen (Hydrocodone/Acetaminophen 10/325 Mg Tablet) 1 tab PO Q6H PRN PRN Reason: Severe Pain (7-10) Last Admin: 07/31/20 11:09 Dose: 1 tab Documented by: Carvedilol (Carvedilol 3.125 Mg Tab) 3.125 mg PO BID-[facility] Last Admin: 07/31/20 08:15 Dose: 3.125 mg Documented by: Colestipol HCl (Colestipol Hcl 1 Gm Tab) 1 gm PO DAILYPRN PRN PRN Reason: SPASMS Cyclobenzaprine HCl (Cyclobenzaprine 10 Mg Tab) 10 mg PO TID PRN PRN Reason: Muscle Spasm Last Admin: 07/31/20 08:19 Dose: 10 mg Documented by: Dextrose/Water (Dextrose 50% Abboject 50 Ml Syringe) 25 gm SLOW IVP PRN PRN PRN Reason: Hypoglycemia Fluoxetine HCl (Fluoxetine Hcl 20 Mg Cap) 80 mg PO DAILY [facility] Last Admin: 07/31/20 08:15 Dose: 80 mg Documented by: Furosemide (Furosemide 20 Mg Tab) 20 mg PO DAILY [facility] Last Admin: 07/31/20 08:15 Dose: 20 mg Documented by: Glucagon (Glucagon 1 Mg/Ml Vial) 1 mg IM PRN PRN PRN Reason: Hypoglycemia Hydralazine HCl (Hydralazine 20 Mg/Ml Vial) 10 mg SLOW IVP Q4H PRN PRN Reason: SBP > 170 or DBP > 100 Dextrose/Water (D5w) 1,000 mls @ 0 mls/hr IV .Q0M PRN PRN Reason: Hypoglycemia Lactulose (Lactulose 20 Gm/30 Ml Udcup) 20 gm PO 2100 [facility] Last Admin: 07/30/20 20:17 Dose: Not Given Documented by: Lamotrigine (Lamotrigine 100 Mg Tab) 200 mg PO HS [facility] Last Admin: 07/30/20 20:17 Dose: 200 mg Documented by: Levothyroxine Sodium (Levothyroxine Sodium 112 Mcg Tab) 112 mcg PO 0600 [facility] Last Admin: 07/31/20 06:16 Dose: 112 mcg Documented by: Lisinopril (Lisinopril 2.5 Mg Tab) 2.5 mg PO DAILY [facility] Last Admin: 07/31/20 08:16 Dose: Not Given Documented by: Ondansetron HCl (Ondansetron Pf 4 Mg/2 Ml Vial) 4 mg IVP Q6H PRN PRN Reason: Nausea Pantoprazole Sodium (Pantoprazole 40 Mg Tab) 40 mg PO DAILY [facility] Last Admin: 07/31/20 08:16 Dose: 40 mg Documented by: Polyethylene Glycol (Polyethylene Glycol 3350 17 Gm Packet) 17 gm PO DAILY [facility] Last Admin: 07/31/20 08:16 Dose: Not Given Documented by: Potassium Chloride (Potassium Chloride 10 Meq Tab) 10 meq PO BID [facility] Last Admin: 07/31/20 08:16 Dose: 10 meq Documented by: Primidone (Primidone 50 Mg Tab) 25 mg PO [facility] Last Admin: 07/30/20 20:18 Dose: Not Given Documented by: Senna/Docusate Sodium (Senokot S 8.6-50 Mg Tab) 2 tab PO BID [facility] Last Admin: 07/31/20 08:16 Dose: Not Given Documented by: Sodium Chloride (Flush - Normal Saline 10 Ml Syringe) 10 ml IVF PRN PRN PRN Reason: Saline Flush Trazodone HCl (Trazodone Hcl 50 Mg Tab) 200 mg PO [facility] Last Admin: 07/30/20 20:17 Dose: 200 mg Documented by: Vital Signs & Weight: Vital Signs Temp Pulse Resp BP Pulse Ox 07/31/20 11:00 98.1 F 82 18 138/83 96 07/31/20 08:16 70 07/31/20 08:00 98 07/31/20 07:39 97.9 F 70 16 111/70 98 07/31/20 04:08 97.9 F 64 14 128/58 L 93 L Weight 149 lb 14.629 oz - Physical Exam General: alert & oriented x3 HEENT: mucus membranes moist Neck: supple neck Cardiac: regular rate and rhythm Lungs: clear to auscultation Neuro: grossly intact Abdomen: active bowel sounds Extremities: no edema Skin: clear Musculoskeletal: no pain - Labs Result Diagrams: 07/30/20 05:37 07/30/20 05:37 - Assessment/Plan Assessment/Plan: 1. New onset dilated cardiomyopathy Ef at 30-35% 2. Normal LHC by report at [facility] last year 3. Left elbow dislocation and ligament tears s/p repair PLAN: - Tolerating BB and low dose ACEI. - Plan to switch to Entresto in next few weeks if ACEI tolerated - May D/C from cardiac perspective once lifevest placed. - Follow up in the office in 4 weeks.
[2020-07-31] MEDS ORDERED: HYDROcodone/Acetaminophen 5/325 mg Tablet PO PRN (14:09)
--- NOTE | 2020-07-31 16:26 | PRG ---
DATE OF SERVICE: 07/31/2020 SUBJECTIVE: Ms. Pang is a 59-year-old female patient, postop day 2, ORIF of lateral collateral ligament complex after elbow dislocation. The patient is on room air this morning. The patient is complaining of arm pain at rest and no one is bathing her or changing her sheets. Tylenol q.6 standing. The patient is on Flexeril 10 mg t.i.d. p.r.n. She is on home dose of hydrocodone 5 mg q.4 hours p.r.n. and 10 mg q.6 p.r.n. for severe pain. The patient's medications were adjusted today. The patient has allergy to ibuprofen, not able to start. The patient is tolerating regular diet and voiding spontaneously. The patient would like to be discharged today. Cardiology would like to place a LifeVest before the patient is discharged, orders and paperwork have already been filled out for placement. OBJECTIVE: VITAL SIGNS: Temperature 98.1, pulse 82, respiratory rate 18, O2 saturation 96%, blood pressure 138/83. GENERAL: No acute distress. Sitting upright in bed. EXTREMITIES: The patient has left arm splint in place with sling on. CARDIAC: Regular rate and rhythm. NEUROLOGIC: The patient is speaking full sentences. No accessory muscle use. GI: Abdomen is protuberant, soft, nontender. MUSCULOSKELETAL: Sensation intact in upper and lower extremities. ASSESSMENT: 1. Status post ground level fall with recurring elbow dislocation, postop repair day 2.s/p ORIF of lateral collateral ligament complex after elbow dislocation. 3. History of congestive heart failure, left bundle-branch block, asthma, hypothyroid, anxiety, bipolar disorder, breast cancer, fibromyalgia. 4. New-onset dilated cardiomyopathy, ejection fraction 30% to 35%. 5. Normal LHC by report at [facility] last year. PLAN: -Continue tylenol, flexeril and hydrocodone, patient allergic to ibuprofen. placed the patient on hydrocodone for chronic pain. -The patient's pain regimen was adjusted today. Increase hydrocodone to q.4hr p.r.n. 5 mg. We will re-evaluate how the patient is doing. -Cardiology-dilated cardiomyopathy, EF 30% to 35%. We are going to fit the patient for LifeVest before the patient is discharged home. -Cardiology will continue to follow the patient on her beta-pk and an GRETEL inhibitor. The patient should follow up with Cardiology in 4 weeks and start her on Entresto. Continue bowel regimen, the patient has 2 bowel yesterday. Resume all home medication day Hospital day 0 Continue mechanical DVT prophylaxis Dispo Home with f/u with ortho and cardiology Job ID: [id number] MTDD
[2020-07-31] MEDS: lamoTRIgine 100 MG TAB PO SCH (20:26)
[2020-07-31] MEDS: traZODone HCl 50 MG TAB PO SCH (20:26)
[2020-07-31] MEDS: Primidone 50 MG TAB PO SCH (20:26)
[2020-08-01] MEDS: HYDROcodone/Acetaminophen 10/325 mg Tablet PO PRN ×3 (00:05→13:45)
[2020-08-01] MEDS: Acetaminophen 325 MG TAB PO SCH ×3 (00:06→12:12)
[2020-08-01] MEDS: Cyclobenzaprine 10 MG TAB PO PRN (06:12)
[2020-08-01] MEDS: Levothyroxine Sodium 112 MCG TAB PO SCH (06:12)
[2020-08-01] MEDS: Lisinopril 2.5 MG TAB PO SCH (08:12)
[2020-08-01] MEDS: Polyethylene Glycol 3350 17 GM Packet PO SCH (08:12)
[2020-08-01] MEDS: Senokot S 8.6-50 MG TAB PO SCH (08:12)
[2020-08-01] MEDS: FLUoxetine HCl 20 MG CAP PO SCH (08:16)
[2020-08-01] MEDS: Carvedilol 3.125 MG TAB PO SCH (08:16)
[2020-08-01] MEDS: Potassium Chloride 10 MEQ TAB PO SCH (08:16)
[2020-08-01] MEDS: Furosemide 20 MG TAB PO SCH (08:16)
[2020-08-01] MEDS ORDERED: Enoxaparin Sodium 40 MG/0.4 ML SYRINGE SC SCH (09:00)
[2020-08-01 11:37] VITALS: BP 124/76; TEMP 97.6
--- NOTE | 2020-08-01 13:24 | DIS ---
DATE OF ADMISSION: 07/29/2020 DATE OF DISCHARGE: 08/01/2020 ADMISSION DIAGNOSES: 1. Status post ground level fall with left elbow redislocation. 2. History of congestive heart failure with hospitalization. 3. History of hypertension, left bundle-branch block, asthma, hypothyroidism, depression, anxiety, bipolar disorder, fibromyalgia, and breast cancer. 4. New-onset systolic dysfunction with ejection fraction at 30%. PROCEDURES: 1. Open reduction of left elbow dislocation. 2. Open repair of lateral collateral ligament complex. CONSULTATIONS: 1. Orthopedics, Dr. Melton. 2. Cardiology, Dr. Lujan. HOSPITAL COURSE: The patient is a 59-year-old woman, who was brought to the emergency department complaining of left elbow pain. She had a mechanical fall 4 days prior to her presentation, in which she suffered an elbow dislocation. She had a closed reduction done at [facility], and then earlier the day of admission, she felt a pop and her elbow dislocated. She was brought to our facility, where she underwent evaluation and examination, was noted to have recurrent elbow dislocation. Prior to her surgery, she did receive cardiac clearance due to her extensive cardiac history, which she tolerated well. Postoperatively, she continued to progress well. Her pain was controlled primarily with her home regimen of narcotics. She was fitted with a LifeVest per Cardiology prior to her discharge. At the time of discharge, her splint was intact. She was neurovascularly intact. She was ambulating, tolerating a diet, and her bowel function had returned. She will follow up with Dr. Melton in 10 days, sooner as needed for her elbow. She will follow up with Dr. Lujan in 3 to 4 weeks for cardiac condition. Job ID: [id number]
--- NOTE | 2020-08-01 14:28 | PDOC.CPN ---
- Subjective Date: 08/01/20 Time: 14:26 Interval history: Lifevest set up is done. No new issues. - Review of Systems General: denies: fever/chills, weight/appetite/sleep changes, night sweats, fatigue Respiratory: denies: cough, congestion, shortness of breath, exercise intolerance Cardiovascular: denies: chest pain, palpitation, edema, paroxysmal nocturnal dyspnea, orthopnea Gastrointestinal: denies: nausea, vomiting, diarrhea, constipation, abd pain, GI bleeding Musculoskeletal: denies: pain, tenderness, stiffness, swelling, arthritis/arthralgias Neurological: denies: numbness, syncope, seizure, weakness - Objective Allergies/Adverse Reactions: Allergies Allergy/AdvReac Type Severity Reaction Status Date / Time adhesive tape Allergy Rash Verified 08/23/19 04:07 amoxicillin Allergy Stomach Verified 08/23/19 04:07 Ache azithromycin [From Zithromax] Allergy Nausea Verified 08/23/19 04:07 bupropion HCl Allergy Swollen Verified 08/23/19 04:07 [From Wellbutrin] Lips ciprofloxacin [From Cipro] Allergy Rash Verified 08/23/19 04:07 ciprofloxacin HCl Allergy Rash Verified 08/23/19 04:07 [From Cipro] ibuprofen Allergy Rash Verified 08/23/19 04:07 Iodinated Contrast Media Allergy Rash Verified 08/23/19 04:07 [Iodinated Contrast Media - IV Dye] naproxen sodium [From Aleve] Allergy Rash Verified 08/23/19 04:07 shellfish derived Allergy Swollen Verified 08/23/19 04:07 Lips sumatriptan [From Imitrex] Allergy Verified 08/23/19 04:07 sumatriptan succinate Allergy Verified 08/23/19 04:07 [From Imitrex] Visit Medications: Current Medications Acetaminophen (Acetaminophen 325 Mg Tab) 650 mg PO Q6HR [facility] Last Admin: 08/01/20 12:12 Dose: 650 mg Documented by: Hydrocodone Bitart/Acetaminophen (Hydrocodone/Acetaminophen 10/325 Mg Tablet) 1 tab PO Q6H PRN PRN Reason: Severe Pain (7-10) Last Admin: 08/01/20 13:45 Dose: 1 tab Documented by: Hydrocodone Bitart/Acetaminophen (Hydrocodone/Acetaminophen 5/325 Mg Tablet) 1 tab PO Q4H PRN PRN Reason: Moderate Pain (4-6) Carvedilol (Carvedilol 3.125 Mg Tab) 3.125 mg PO BID-[facility] Last Admin: 08/01/20 08:16 Dose: 3.125 mg Documented by: Colestipol HCl (Colestipol Hcl 1 Gm Tab) 1 gm PO DAILYPRN PRN PRN Reason: SPASMS Cyclobenzaprine HCl (Cyclobenzaprine 10 Mg Tab) 10 mg PO TID PRN PRN Reason: Muscle Spasm Last Admin: 08/01/20 06:12 Dose: 10 mg Documented by: Dextrose/Water (Dextrose 50% Abboject 50 Ml Syringe) 25 gm SLOW IVP PRN PRN PRN Reason: Hypoglycemia Enoxaparin Sodium (Enoxaparin Sodium 40 Mg/0.4 Ml Syringe) 40 mg SC 0900 [facility] Last Admin: 08/01/20 08:17 Dose: 40 mg Documented by: Fluoxetine HCl (Fluoxetine Hcl 20 Mg Cap) 80 mg PO DAILY [facility] Last Admin: 08/01/20 08:16 Dose: 80 mg Documented by: Furosemide (Furosemide 20 Mg Tab) 20 mg PO DAILY [facility] Last Admin: 08/01/20 08:16 Dose: 20 mg Documented by: Glucagon (Glucagon 1 Mg/Ml Vial) 1 mg IM PRN PRN PRN Reason: Hypoglycemia Hydralazine HCl (Hydralazine 20 Mg/Ml Vial) 10 mg SLOW IVP Q4H PRN PRN Reason: SBP > 170 or DBP > 100 Dextrose/Water (D5w) 1,000 mls @ 0 mls/hr IV .Q0M PRN PRN Reason: Hypoglycemia Lactulose (Lactulose 20 Gm/30 Ml Udcup) 20 gm PO 2100 [facility] Last Admin: 07/31/20 20:27 Dose: Not Given Documented by: Lamotrigine (Lamotrigine 100 Mg Tab) 200 mg PO HS [facility] Last Admin: 07/31/20 20:26 Dose: 200 mg Documented by: Levothyroxine Sodium (Levothyroxine Sodium 112 Mcg Tab) 112 mcg PO 0600 [facility] Last Admin: 08/01/20 06:12 Dose: 112 mcg Documented by: Lisinopril (Lisinopril 2.5 Mg Tab) 2.5 mg PO DAILY [facility] Last Admin: 08/01/20 08:12 Dose: Not Given Documented by: Ondansetron HCl (Ondansetron Pf 4 Mg/2 Ml Vial) 4 mg IVP Q6H PRN PRN Reason: Nausea Pantoprazole Sodium (Pantoprazole 40 Mg Tab) 40 mg PO DAILY [facility] Last Admin: 08/01/20 08:16 Dose: 40 mg Documented by: Polyethylene Glycol (Polyethylene Glycol 3350 17 Gm Packet) 17 gm PO DAILY [facility] Last Admin: 08/01/20 08:12 Dose: Not Given Documented by: Potassium Chloride (Potassium Chloride 10 Meq Tab) 10 meq PO BID [facility] Last Admin: 08/01/20 08:16 Dose: 10 meq Documented by: Primidone (Primidone 50 Mg Tab) 25 mg PO [facility] Last Admin: 07/31/20 20:26 Dose: Not Given Documented by: Senna/Docusate Sodium (Senokot S 8.6-50 Mg Tab) 2 tab PO BID [facility] Last Admin: 08/01/20 08:12 Dose: Not Given Documented by: Sodium Chloride (Flush - Normal Saline 10 Ml Syringe) 10 ml IVF PRN PRN PRN Reason: Saline Flush Trazodone HCl (Trazodone Hcl 50 Mg Tab) 200 mg PO [facility] Last Admin: 07/31/20 20:26 Dose: 200 mg Documented by: Vital Signs & Weight: Vital Signs Temp Pulse Resp BP Pulse Ox 08/01/20 11:35 97.6 F 74 16 124/76 93 L 08/01/20 08:33 97.9 F 74 16 133/75 90 L 08/01/20 03:29 98.1 F 67 18 127/79 93 L Weight 149 lb 14.629 oz - Physical Exam General: alert & oriented x3 HEENT: mucus membranes moist Neck: supple neck Cardiac: regular rate and rhythm Lungs: clear to auscultation Neuro: grossly intact Abdomen: active bowel sounds Extremities: no edema Skin: clear Musculoskeletal: pain in joint - Labs Result Diagrams: 07/30/20 05:37 07/30/20 05:37 - Assessment/Plan Assessment/Plan: 1. New onset dilated cardiomyopathy Ef at 30-35% 2. Normal LHC by report at [facility] last year 3. Left elbow dislocation and ligament tears s/p repair PLAN: - Continue BB and low dose ACEI. - Plan to switch to Entresto in next few weeks if ACEI tolerated - October D/C home.
== END 2020-08-01 16:00 | disposition home or self-care (01) | DRG 501 ==
LOC: ERS 00:47 → SURG A 06:30
PROVIDERS: ADMIT Surgery; ATTEND Surgery
PROC: 0RSMXZZ Reposition Left Elbow Joint, External Approach (ICD-10-PCS; 2020-07-27)
PROC: 0RSM04Z Reposition Left Elbow Joint with Internal Fixation Device, Open Approach (ICD-10-PCS; principal; 2020-07-29)
PROC: 0MQ40ZZ Repair Left Elbow Bursa and Ligament, Open Approach (ICD-10-PCS; 2020-07-29)
DX: M24.422 Recurrent dislocation, left elbow (principal); I50.22 Chronic systolic (congestive) heart failure; I42.0 Dilated cardiomyopathy; Z20.822 Contact with and (suspected) exposure to COVID-19; I11.0 Hypertensive heart disease with heart failure; I44.7 Left bundle-branch block, unspecified; J45.909 Unspecified asthma, uncomplicated; E03.9 Hypothyroidism, unspecified; F41.9 Anxiety disorder, unspecified; F31.9 Bipolar disorder, unspecified; M79.7 Fibromyalgia; K21.9 Gastro-esophageal reflux disease without esophagitis; F90.9 Attention-deficit hyperactivity disorder, unspecified type; Z90.13 Acquired absence of bilateral breasts and nipples; Z85.3 Personal history of malignant neoplasm of breast; Z90.49 Acquired absence of other specified parts of digestive tract; Z90.710 Acquired absence of both cervix and uterus; Z79.899 Other long term (current) drug therapy; Z79.890 Hormone replacement therapy; Z79.82 Long term (current) use of aspirin; Z88.6 Allergy status to analgesic agent; Z88.1 Allergy status to other antibiotic agents; Z88.8 Allergy status to other drugs, medicaments and biological substances
CPT/HCPCS: 24600; 36415; 71045; 76000; 80048; 80053; 83735; 83880; 84100; 85025; 85610; 85730; 93005; 93306; 94760; 96374; 96375; 96376; 99156; 99157; C1713; G0390; J1100; J1170; J1650; J1885; J2270; J2405; J2704; J3010; J3490; S0028; U0002

== ENCOUNTER 2020-10-01 21:46 | Emergency (ER) | payer MEDICARE | END 2020-10-01 23:34 | disposition home or self-care (01) | LOC: ERS 21:46 | DX: M77.9 Enthesopathy, unspecified (principal); E66.9 Obesity, unspecified; E03.9 Hypothyroidism, unspecified; E78.5 Hyperlipidemia, unspecified; E78.00 Pure hypercholesterolemia, unspecified; I11.0 Hypertensive heart disease with heart failure; I50.9 Heart failure, unspecified ==

== ENCOUNTER 2020-10-20 07:24 | Outpatient (CLI) | payer MEDICARE | END 2020-10-20 07:25 | disposition home or self-care (01) | LOC: BICMRI 07:24 | PROVIDERS: ATTEND Nurse Practitioner Family | DX: M48.02 Spinal stenosis, cervical region (principal); M47.812 Spondylosis without myelopathy or radiculopathy, cervical region | CPT/HCPCS: 72141 ==

== ENCOUNTER 2020-11-10 17:07 | Emergency (ER) | payer MEDICARE ==
[2020-11-10 20:08] LABS: #Basophils 0.1 thou/uL (0.0-0.2); #Eosinphils 0.3 thou/uL (0.0-0.7); #Lymphocytes 2.1 thou/uL (1.20-3.40); #Monocytes 0.4 thou/uL (0.11-0.59); #Neutrophils 3.6 thou/uL (1.40-6.50); %Basophils 1.3 % (0.0-1.0); %Eosinophils 4.3 % (0.0-10.0); %Monocytes 6.6 % (0.0-10.0); %Neutrophils 55.8 % (42.0-75.0); Mean Corpuscular HGB CONC 34.3 g/dL (32.0-36.0); Mean Corpuscular Hemoglobin 30.2 pg (27.0-31.0); Mean Corpuscular Volume 87.9 fL (78.0-98.0); Mean Platelet Volume 6.4 fL (7.4-10.4); Platelet Count 263 thou/uL (130-400); RBC Distribution Width 12.5 % (11.5-14.5); Red Blood Cell (RBC) Count 3.97 mill/uL (4.20-5.40); White Blood Cell (WBC) Count 6.4 thou/uL (4.8-10.8)
[2020-11-10 20:32] LABS: AST (SGOT) 15 U/L (5-34); Albumin 3.9 g/dL (3.5-5.0); Alkaline Phosphatase 111 U/L (40-110); Anion Gap 12 mmol/L (10-20); BUN (Urea Nitrogen) 15 mg/dL (9.8-20.1); Bilirubin, Total 0.2 mg/dL (0.2-1.2); CK (CPK) 66 U/L (29-168); Calc. Creatinine Clearance 0 mL/min (70-130); Calcium 8.9 mg/dL (7.8-10.44); Carbon Dioxide 24 mmol/L (22-29); Chloride 106 mmol/L (98-107); Globulin 2.8 g/dL (2.4-3.5); Glucose 103 mg/dL (70-105); Magnesium 2.2 mg/dL (1.6-2.6); Potassium 4.2 mmol/L (3.5-5.1); Protein, Total 6.7 g/dL (6.0-8.3); Sodium 138 mmol/L (136-145)
[2020-11-10 23:22] LABS: ALT (SGPT) 16 U/L (8-55)
== END 2020-11-10 22:20 | disposition home or self-care (01) ==
LOC: ERS 17:07
DX: R53.83 Other fatigue (principal); E78.5 Hyperlipidemia, unspecified; I11.0 Hypertensive heart disease with heart failure; I50.9 Heart failure, unspecified; Z79.899 Other long term (current) drug therapy
CPT/HCPCS: 36415; 71045; 80053; 82550; 83735; 83880; 84443; 84484; 85025; 93005; 94760

== ENCOUNTER 2021-02-04 11:03 | Emergency (ER) | payer MEDICARE ==
[2021-02-04 11:58] LABS: Bilirubin Negative (Negative); Blood, Urine Negative (Negative); Clarity Clear (Clear); Glucose, Urine (Dipstick) Normal (Negative); Ketone, Urine Negative (Negative); Leukocyte Negative Leu/uL (Negative); Nitrite Negative (Negative); Protein, Urine (Dipstick) Negative (Neg-Trace); Specific Gravity, Urine 1.011 (1.002-1.036); Urobilinogen Normal mg/dL (Less than 2)
[2021-02-04 12:05] LABS: #Basophils 0.1 thou/uL (0.0-0.2); #Eosinphils 0.3 thou/uL (0.0-0.7); #Lymphocytes 1.6 thou/uL (1.20-3.40); #Monocytes 0.5 thou/uL (0.11-0.59); #Neutrophils 4.1 thou/uL (1.40-6.50); %Eosinophils 5.3 % (0.0-10.0); %Monocytes 7.3 % (0.0-10.0); %Neutrophils 62.4 % (42.0-75.0); Hemoglobin 11.9 g/dL (12.0-16.0); Mean Corpuscular HGB CONC 34.4 g/dL (32.0-36.0); Mean Corpuscular Hemoglobin 30.4 pg (27.0-31.0); Mean Corpuscular Volume 88.5 fL (78.0-98.0); Mean Platelet Volume 6.5 fL (7.4-10.4); Platelet Count 248 thou/uL (130-400); RBC Distribution Width 12.5 % (11.5-14.5); Red Blood Cell (RBC) Count 3.92 mill/uL (4.20-5.40); White Blood Cell (WBC) Count 6.5 thou/uL (4.8-10.8)
[2021-02-04 12:27] LABS: ALT (SGPT) 15 U/L (8-55); AST (SGOT) 14 U/L (5-34); Alkaline Phosphatase 115 U/L (40-110); Anion Gap 13 mmol/L (10-20); BUN (Urea Nitrogen) 17 mg/dL (9.8-20.1); Bilirubin, Total 0.3 mg/dL (0.2-1.2); CK (CPK) 67 U/L (29-168); Calc. Creatinine Clearance 0 mL/min (70-130); Calcium 8.9 mg/dL (7.8-10.44); Carbon Dioxide 27 mmol/L (22-29); Chloride 104 mmol/L (98-107); Globulin 2.7 g/dL (2.4-3.5); Glucose 96 mg/dL (70-105); Protein, Total 6.7 g/dL (6.0-8.3); Sodium 140 mmol/L (136-145)
[2021-02-04 13:57] LABS: SARS-CoV-2 NAA Rapid Test Not Detected (NotDetected)
== END 2021-02-04 12:50 | disposition home or self-care (01) ==
LOC: ERS 11:03
DX: R53.1 Weakness (principal); E66.9 Obesity, unspecified; E05.90 Thyrotoxicosis, unspecified without thyrotoxic crisis or storm; K21.9 Gastro-esophageal reflux disease without esophagitis; E78.5 Hyperlipidemia, unspecified; E78.00 Pure hypercholesterolemia, unspecified; M79.7 Fibromyalgia; M19.90 Unspecified osteoarthritis, unspecified site; I11.0 Hypertensive heart disease with heart failure; I50.9 Heart failure, unspecified; J45.909 Unspecified asthma, uncomplicated; Z20.822 Contact with and (suspected) exposure to COVID-19
CPT/HCPCS: 71045; 80053; 81003; 82550; 83880; 84484; 85025; 93005; U0002

== ENCOUNTER 2021-07-30 17:29 | Emergency (ER) | payer MEDICARE, OTHER ==
[2021-07-30 18:21] LABS: #Eosinphils 0.3 thou/uL (0.0-0.7); #Lymphocytes 2.3 thou/uL (1.20-3.40); #Monocytes 0.5 thou/uL (0.11-0.59); %Basophils 0.5 % (0.0-1.0); %Eosinophils 4.2 % (0.0-10.0); %Lymphocytes 31.7 % (21.0-51.0); %Monocytes 7.1 % (0.0-10.0); %Neutrophils 56.6 % (42.0-75.0); Hemoglobin 12.1 g/dL (12.0-16.0); Mean Corpuscular Hemoglobin 30.9 pg (27.0-31.0); Mean Corpuscular Volume 90.7 fL (78.0-98.0); Mean Platelet Volume 6.1 fL (7.4-10.4); Platelet Count 281 thou/uL (130-400); RBC Distribution Width 12.2 % (11.5-14.5); Red Blood Cell (RBC) Count 3.93 mill/uL (4.20-5.40); White Blood Cell (WBC) Count 7.1 thou/uL (4.8-10.8)
[2021-07-30 18:43] LABS: ALT (SGPT) 21 U/L (8-55); AST (SGOT) 24 U/L (5-34); Albumin 4.1 g/dL (3.5-5.0); Alkaline Phosphatase 99 U/L (40-110); Anion Gap 17 mmol/L (10-20); BUN (Urea Nitrogen) 19 mg/dL (9.8-20.1); Bilirubin, Total 0.3 mg/dL (0.2-1.2); CK (CPK) 79 U/L (29-168); Calc. Creatinine Clearance 0 mL/min (70-130); Calcium 8.6 mg/dL (7.8-10.44); Carbon Dioxide 22 mmol/L (22-29); Chloride 104 mmol/L (98-107); Globulin 2.9 g/dL (2.4-3.5); Glucose 84 mg/dL (70-105); Potassium 4.2 mmol/L (3.5-5.1); Sodium 139 mmol/L (136-145)
[2021-07-30 18:46] LABS: Bacteria/HPF None Seen HPF (None Seen); Bilirubin Negative (Negative); Blood, Urine Negative (Negative); Clarity Clear (Clear); Glucose, Urine (Dipstick) Normal (Negative); Ketone, Urine Negative (Negative); Leukocyte 25 Leu/uL (Negative); Nitrite Negative (Negative); Protein, Urine (Dipstick) Negative (Neg-Trace); RBC/HPF 0-3 HPF (0-3); Specific Gravity, Urine 1.023 (1.002-1.036); Squamous Epithelial 0-3 HPF (0-3); Urobilinogen Normal mg/dL (Less than 2); WBC/HPF 0-3 HPF (0-3)
== END 2021-07-30 19:30 | disposition home or self-care (01) ==
LOC: ERS 17:29
DX: F41.9 Anxiety disorder, unspecified (principal); R07.89 Other chest pain; E66.9 Obesity, unspecified; E03.9 Hypothyroidism, unspecified; K21.9 Gastro-esophageal reflux disease without esophagitis; E78.5 Hyperlipidemia, unspecified; E78.00 Pure hypercholesterolemia, unspecified; M19.90 Unspecified osteoarthritis, unspecified site; J45.909 Unspecified asthma, uncomplicated; I50.9 Heart failure, unspecified
CPT/HCPCS: 36415; 71045; 80053; 81003; 81015; 82550; 83880; 84484; 85025; 85379; 93005; 94760

== ENCOUNTER 2023-03-07 14:29 | Outpatient (CLI) | payer OTHER | END 2023-03-07 14:30 | disposition home or self-care (01) | LOC: RAD 14:29 | PROVIDERS: ATTEND Neurological Surgery | DX: M54.14 Radiculopathy, thoracic region (principal); Z95.810 Presence of automatic (implantable) cardiac defibrillator | CPT/HCPCS: 71045 ==

== ENCOUNTER 2023-03-08 11:54 | Outpatient (CLI) | payer MEDICARE | END 2023-03-08 11:55 | disposition home or self-care (01) | LOC: MRI 11:54 | PROVIDERS: ATTEND Specialist | DX: M51.14 Intervertebral disc disorders with radiculopathy, thoracic region (principal); M54.12 Radiculopathy, cervical region; M48.02 Spinal stenosis, cervical region; M51.17 Intervertebral disc disorders with radiculopathy, lumbosacral region; M47.27 Other spondylosis with radiculopathy, lumbosacral region; M47.816 Spondylosis without myelopathy or radiculopathy, lumbar region | CPT/HCPCS: 72141; 72146; 72148 ==

== ENCOUNTER 2023-06-19 19:44 | Emergency (ER) | payer OTHER ==
[2023-06-19] MEDS ORDERED: Ipratropium/Albuterol 3 ML NEB ONE (20:19)
[2023-06-19 20:24] LABS: #Basophils 0.1 thou/uL (0.0-0.2); #Eosinphils 0.3 thou/uL (0.0-0.7); #Monocytes 0.5 thou/uL (0.11-0.59); #Neutrophils 5.2 thou/uL (1.40-6.50); %Basophils 0.8 % (0.0-1.0); %Eosinophils 3.3 % (0.0-10.0); %Monocytes 6.3 % (0.0-10.0); %Neutrophils 63.4 % (42.0-75.0); Hematocrit 38.3 % (36.0-47.0); Hemoglobin 13.1 g/dL (12.0-16.0); Mean Corpuscular HGB CONC 34.2 g/dL (32.0-36.0); Mean Corpuscular Volume 90.8 fl (78.0-98.0); Platelet Count 265 10x3/uL (130-400); RBC Distribution Width 13.5 % (11.5-14.5); Red Blood Cell (RBC) Count 4.22 mill/uL (4.20-5.40); White Blood Cell (WBC) Count 8.2 10x3/uL (4.8-10.8)
[2023-06-19 20:28] LABS: Bacteria/HPF None Seen HPF (None Seen); Bilirubin Negative (Negative); Blood, Urine Negative (Negative); CAUTI Indications for Culture Pelvic or flank pain; Clarity Clear (Clear); Glucose, Urine (Dipstick) Normal (Negative); Ketone, Urine Negative (Negative); Leukocyte Negative Leu/uL (Negative); Nitrite Negative (Negative); Protein, Urine (Dipstick) Negative (Neg-Trace); RBC/HPF None Seen HPF (0-3); Specific Gravity, Urine 1.014 (1.002-1.036); Squamous Epithelial 0-3 HPF (0-3); Urobilinogen Normal mg/dL (Less than 2); WBC/HPF 0-3 HPF (0-3)
[2023-06-19 20:30] LABS: Urine Culture Reflex No No
[2023-06-19 20:45] LABS: ALT (SGPT) 15 U/L (8-55); AST (SGOT) 17 U/L (5-34); Albumin 4.9 g/dL (3.4-4.8); Alkaline Phosphatase 92 U/L (40-110); Anion Gap 14 mmol/L (10-20); BUN (Urea Nitrogen) 19 mg/dL (9.8-20.1); Bilirubin, Total 0.5 mg/dL (0.2-1.2); Calc. Creatinine Clearance 0 mL/min (70-130); Calcium 9.6 mg/dL (7.8-10.44); Carbon Dioxide 28 mmol/L (23-31); Chloride 102 mmol/L (98-107); Estimated GFR 69; Globulin 2.4 g/dL (2.4-3.5); Glucose 86 mg/dL (80-115); Potassium 3.8 mmol/L (3.5-5.1); Protein, Total 7.3 g/dL (5.8-8.1); Sodium 140 mmol/L (136-145)
[2023-06-19 20:49] LABS: Troponin I 0.015 ng/mL (< 0.028)
== END 2023-06-19 21:11 | disposition home or self-care (01) ==
LOC: ERS 19:44
DX: R07.9 Chest pain, unspecified (principal); F41.9 Anxiety disorder, unspecified; I11.0 Hypertensive heart disease with heart failure; I50.9 Heart failure, unspecified
CPT/HCPCS: 71045; 80053; 81001; 84484; 85025; 93005; J7620

== ENCOUNTER 2023-08-09 12:43 | Emergency (ER) | payer OTHER ==
[2023-08-09 13:19] LABS: #Basophils 0.1 thou/uL (0.0-0.2); #Eosinphils 0.3 thou/uL (0.0-0.7); #Monocytes 0.3 thou/uL (0.11-0.59); #Neutrophils 5.6 thou/uL (1.40-6.50); %Basophils 0.6 % (0.0-1.0); %Eosinophils 3.9 % (0.0-10.0); %Lymphocytes 26.6 % (21.0-51.0); %Monocytes 3.8 % (0.0-10.0); %Neutrophils 64.8 % (42.0-75.0); Hematocrit 32.5 % (36.0-47.0); Hemoglobin 10.8 g/dL (12.0-16.0); Mean Corpuscular HGB CONC 33.2 g/dL (32.0-36.0); Mean Corpuscular Hemoglobin 31.3 pg (27.0-31.0); Mean Corpuscular Volume 94.2 fl (78.0-98.0); Mean Platelet Volume 8.8 fL (7.4-10.4); Platelet Count 219 10x3/uL (130-400); RBC Distribution Width 13.2 % (11.5-14.5); Red Blood Cell (RBC) Count 3.45 mill/uL (4.20-5.40); White Blood Cell (WBC) Count 8.7 10x3/uL (4.8-10.8)
[2023-08-09 13:35] LABS: ALT (SGPT) 16 U/L (8-55); AST (SGOT) 18 U/L (5-34); Albumin 4.2 g/dL (3.4-4.8); Alkaline Phosphatase 68 U/L (40-110); Anion Gap 11 mmol/L (10-20); BUN (Urea Nitrogen) 20 mg/dL (9.8-20.1); Bilirubin, Total 0.5 mg/dL (0.2-1.2); Calc. Creatinine Clearance 0 mL/min (70-130); Calcium 9.3 mg/dL (7.8-10.44); Carbon Dioxide 25 mmol/L (23-31); Chloride 107 mmol/L (98-107); Estimated GFR 72; Globulin 2.1 g/dL (2.4-3.5); Glucose 96 mg/dL (80-115); Potassium 3.5 mmol/L (3.5-5.1); Protein, Total 6.3 g/dL (5.8-8.1); Sodium 139 mmol/L (136-145)
[2023-08-09 14:25] LABS: Bacteria/HPF 2+ HPF (None Seen); Bilirubin Negative (Negative); Blood, Urine 3+ (Negative); CAUTI Indications for Culture Dysuria,urgency,freq; Clarity Turbid (Clear); Glucose, Urine (Dipstick) Normal (Negative); Ketone, Urine Negative (Negative); Leukocyte 500 Leu/uL (Negative); Nitrite 1+ (Negative); Protein, Urine (Dipstick) 70 mg/dL (Neg-Trace); RBC/HPF Greater than 50 HPF (0-3); Specific Gravity, Urine 1.029 (1.002-1.036); Squamous Epithelial 0-3 HPF (0-3); Transitional Epithelial 0-3 HPF (None Seen); Urobilinogen Normal mg/dL (Less than 2); WBC/HPF Greater than 50 HPF (0-3)
[2023-08-09 14:34] LABS: Urine Culture Reflex Yes Yes
== END 2023-08-09 15:23 | disposition home or self-care (01) ==
LOC: ERS 12:43
DX: N39.0 Urinary tract infection, site not specified (principal); D64.9 Anemia, unspecified; R31.9 Hematuria, unspecified; I11.0 Hypertensive heart disease with heart failure; I50.9 Heart failure, unspecified
CPT/HCPCS: 36415; 74176; 80053; 81001; 85025; 87077; 87086; 87186

== ENCOUNTER 2025-05-15 11:44 | Emergency (ER) | payer MEDICARE ==
[2025-05-15 12:35] LABS: Hematocrit 33.5 % (36.0-47.0); Hemoglobin 11.1 g/dL (12.0-16.0); Mean Corpuscular Hemoglobin 29.4 pg (27.0-31.0); Mean Corpuscular Volume 88.9 fL (78.0-98.0); Platelet Count 203 10x3/uL (130-400); Red Blood Cell (RBC) Count 3.77 mill/uL (4.20-5.40); White Blood Cell (WBC) Count 9.59 10x3/uL (4.8-10.8)
[2025-05-15 12:44] LABS: ALT (SGPT) 20 U/L (Less than 34); AST (SGOT) 29 U/L (11-34); Albumin 3.9 g/dL (3.1-4.5); Alkaline Phosphatase 83 U/L (40-110); Anion Gap 5 mmol/L (10-20); BUN (Urea Nitrogen) 17 mg/dL (9.8-20.1); Bilirubin, Total 0.3 mg/dL (0.3-1.2); Calc. Creatinine Clearance 0 mL/min (70-130); Calcium 8.8 mg/dL (7.8-10.44); Carbon Dioxide 25 mmol/L (23-31); Chloride 111 mmol/L (98-107); Globulin 2.0 g/dL (2.4-3.5); Glucose 97 mg/dL (80-115); Potassium 4.8 mmol/L (3.5-5.1); Sodium 136 mmol/L (136-145)
[2025-05-15 13:05] LABS: Macrocytosis SLIGHT = 6-15 cells HPF (0-5); Ovalocytes SLIGHT = 2-5 cells HPF (0-1); Platelet Adequacy Comment Platelets Normal
== END 2025-05-15 14:52 | disposition home or self-care (01) ==
LOC: ERS 11:44
DX: R60.0 Localized edema (principal); I11.0 Hypertensive heart disease with heart failure; I50.9 Heart failure, unspecified; M79.7 Fibromyalgia; Z95.0 Presence of cardiac pacemaker
CPT/HCPCS: 71045; 80053; 83880; 84484; 85025; 93005